=== PATIENT | male | born 1990 | race African-American/Black ===

== ENCOUNTER 2021-02-15 23:37 | Emergency (ER) | payer MEDICAID ==
[~2021-02-15] VITALS: Ht 172.7 cm; Wt 54.0 kg
[2021-02-16] MEDS ORDERED: NITROGLYCERIN 0.4MG TABLET SL SL PRN (00:30)
[2021-02-16] MEDS ORDERED: ASPIRIN 325MG EC TABLET PO ONE (00:30)
[2021-02-16 00:43] LABS: BASOPHILS % 0.3 % (0.0-2.0); EOSINOPHILS % 0.2 % (0.0-5.0); HEMATOCRIT. 41.6 % (42.0-52.0); HEMOGLOBIN. 14.4 g/dL (14.0-18.0); LYMPHOCYTES % 16.3 % (20.0-50.0); MEAN CORPUSCULAR HEMOGLOBIN 31.8 pg (28.0-32.0); MEAN CORPUSCULAR VOLUME 91.7 fL (80.0-94.0); MEAN PLATELET VOLUME 9.2 fl (7.4-10.4); MONOCYTES % 7.2 % (2.0-8.0); PLATELET 188 x1000/uL (130-400); RED BLOOD CELL COUNT 4.53 mill/uL (4.7-6.1); RED CELL DISTRIBUTION WIDTH 13.2 % (11.6-14.6)
[2021-02-16] MEDS ORDERED: ONDANSETRON HCL 4MG/2ML INJ IV NR (00:45)
[2021-02-16 00:47] LABS: CHLORIDE 101 mEq/L (98-107)
[2021-02-16 00:51] LABS: ETHANOL BLOOD < 10 mg/dL
[2021-02-16 00:52] LABS: C REACTIVE PROTEIN QUANT 5.7 mg/L (0.0-3.0)
[2021-02-16 00:53] LABS: D-DIMER 0.53 mg/L FEU (<0.50); PARTIAL THROMBOPLASTIN TIME 24.4 sec (23.4-31.0); PROTHROMBIN TIME 10.3 sec (9.6-11.0)
[2021-02-16 01:47] LABS: *AMPHETAMINES SCREEN URINE NEGATIVE (NEGATIVE); *BARBITURATES SCREEN URINE NEGATIVE (NEGATIVE); *BENZODIAZEPINES SCREEN URINE PRESUMTIVE POSITIVE (NEGATIVE); *COCAINE SCREEN URINE NEGATIVE (NEGATIVE)
[2021-02-16 01:48] LABS: CANNABINOID URINE SCREEN PRESUMTIVE POSITIVE (NEGATIVE); METHADONE URINE SCREEN NEGATIVE (NEGATIVE); PHENCYCLIDINE URINE SCREEN NEGATIVE (NEGATIVE)
[2021-02-16 01:51] LABS: OPIATES URINE SCREEN NEGATIVE (NEGATIVE)
[2021-02-16] MEDS ORDERED: IOHEXOL-350 100 ML BOTTLE ONE ×3 (02:40→03:20)
[2021-02-16 03:04] VITALS: BP 118/71
== END 2021-02-16 03:17 | disposition left against medical advice (07) ==
LOC: ER 23:37
DX: R07.89 Other chest pain (principal); R11.2 Nausea with vomiting, unspecified; D64.9 Anemia, unspecified
CPT/HCPCS: 36415; 71045; 80053; 80305; 80320; 83880; 84484; 85025; 85379; 85610; 85651; 85730; 86140; 93005; 96374; 99285; J2405; Q9967; G0480